=== PATIENT | male | born 1955 | race Caucasian/White ===

== ENCOUNTER 2022-06-27 04:10 | Day surgery (SDC) | payer OTHER ==
[2022-06-26 13:46] VITALS: BMI 26.5
[2022-06-27 08:42] VITALS: RESP 18
[2022-06-27 10:54] VITALS: BP 110/66; PULSE 69
[2022-06-27 13:58] VITALS: TEMP 99
== END 2022-06-27 11:05 | disposition home or self-care (01) ==
LOC: JASU-ENDO 04:10
PROVIDERS: ATTEND Internal Medicine Gastroenterology
PROC: 0DJD8ZZ Inspection of Lower Intestinal Tract, Via Natural or Artificial Opening Endoscopic (ICD-10-PCS; principal; 2022-06-27 09:00)
DX: Z12.11 Encounter for screening for malignant neoplasm of colon (principal)
CPT/HCPCS: 82962